=== PATIENT | male | born 1960 | race Caucasian/White ===

== ENCOUNTER 2023-01-02 21:57 | Emergency (ER) | payer MEDICARE, OTHER ==
[2023-01-02] MEDS ORDERED: Ibuprofen 200 MG TAB ONE (23:30)
[2023-01-02] MEDS ORDERED: traMADol HCl 50 MG TAB ONE (23:30)
== END 2023-01-02 23:36 | disposition home or self-care (01) ==
LOC: CSHERS 21:57
DX: R14.0 Abdominal distension (gaseous) (principal); R53.83 Other fatigue; K59.00 Constipation, unspecified; T39.1X5A Adverse effect of 4-Aminophenol derivatives, initial encounter; I25.10 Atherosclerotic heart disease of native coronary artery without angina pectoris; E11.9 Type 2 diabetes mellitus without complications; E78.00 Pure hypercholesterolemia, unspecified; I10 Essential (primary) hypertension; E66.9 Obesity, unspecified; F17.220 Nicotine dependence, chewing tobacco, uncomplicated; Z79.899 Other long term (current) drug therapy; Z79.84 Long term (current) use of oral hypoglycemic drugs; Z79.82 Long term (current) use of aspirin
CPT/HCPCS: 99283